=== PATIENT | female | born 1970 | race Caucasian/White ===

== ENCOUNTER 2018-12-01 05:52 | Observation (INO) | payer OTHER ==
[2018-12-01] MEDS: CEFAZOLIN 2 GM/50 ML (PMX) 50 ML IVPB (06:30)
[2018-12-01] MEDS ORDERED: PROPOFOL 20 ML (06:49)
[2018-12-01] MEDS ORDERED: DESFLURANE 15 MIN (07:00)
[2018-12-01] MEDS ORDERED: LIDOCAINE 2% (SDV) 5 ML INJ (07:00)
[2018-12-01] MEDS ORDERED: ROCURONIUM 50 MG INJ (07:02)
[2018-12-01] MEDS ORDERED: morphine 10 MG INJ (07:21)
[2018-12-01] MEDS ORDERED: DEXAMETHASONE 4 MG/ML 5 ML INJ (07:25)
[2018-12-01] MEDS ORDERED: ONDANSETRON 4 MG INJ (07:25)
[2018-12-01] MEDS: BUPIVACAINE 0.25% (MPF) 30 ML INJ (07:52)
[2018-12-01] MEDS: GELATIN SIZE 100 SPONGE (08:03)
[2018-12-01] MEDS: POLYMYXIN/BACITRACIN 1L IRRIG IRR (08:03)
[2018-12-01] MEDS ORDERED: SUGAMMADEX SODIUM 200 MG/2 ML VIAL IV (08:46)
[2018-12-01] MEDS: THROMBIN 5000 UNIT VIAL (09:05)
[2018-12-01] MEDS ORDERED: HYDROmorphONE 1 MG/5 ML IV SYRINGE IV ×3 (09:10→09:30)
[2018-12-01] MEDS ORDERED: FENTAnyl 50 MCG/ML VIAL (09:11)
[2018-12-01] MEDS ORDERED: EPHEDrine SULFATE 50 MG/5 ML SYG IV (09:30)
[2018-12-01] MEDS ORDERED: MEPERIDINE 25 MG INJ IV (09:30)
[2018-12-01] MEDS ORDERED: ONDANSETRON 4 MG INJ IV (09:30)
[2018-12-01] MEDS ORDERED: KETOROLAC 30 MG INJ IV (09:30)
[2018-12-01] MEDS ORDERED: OXYCODONE/ACETAMINOPHEN (5/325) TAB PO ×3 (09:30)
[2018-12-01] MEDS ORDERED: ALBUTEROL 0.083% (NEB) 2.5 MG/3 ML AMP HHN (09:30)
[2018-12-01] MEDS ORDERED: hydrALAzine 20 MG INJ IV (09:30)
[2018-12-01] MEDS ORDERED: DIPHENHYDRAMINE 50 MG INJ IV (09:30)
[2018-12-01] MEDS ORDERED: LABETALOL HCL 20MG INJ IV (09:30)
[2018-12-01] MEDS ORDERED: METOCLOPRAMIDE 10 MG INJ IV (09:30)
[2018-12-01] MEDS ORDERED: FENTAnyl 50 MCG/ML VIAL IV ×2 (09:30)
[2018-12-01] MEDS: FENTAnyl 50 MCG/ML VIAL IV (09:48)
[2018-12-01] MEDS: HYDROmorphONE 1 MG/5 ML IV SYRINGE IV (09:49)
[2018-12-01] MEDS: OXYCODONE/ACETAMINOPHEN (5/325) TAB PO (09:57)
[2018-12-01] MEDS: ONDANSETRON 4 MG INJ IV (09:57)
[2018-12-01] MEDS ORDERED: HYDROCODONE/APAP (5/325) TAB PO (17:00)
[2018-12-01] MEDS ORDERED: ZOLPIDEM 5 MG TAB PO (17:00)
[2018-12-01] MEDS: HYDROCODONE/APAP (5/325) TAB PO (17:36)
[2018-12-01] MEDS: LACTATED RINGER'S 1,000 ML IV* (18:55)
[2018-12-01] MEDS: CEFAZOLIN 1 GM/50 ML (PMX) 50 ML IVPB (18:55)
[2018-12-02] MEDS: HYDROCODONE/APAP (5/325) TAB PO ×2 (01:00→07:25)
[2018-12-02] MEDS: CEFAZOLIN 1 GM/50 ML (PMX) 50 ML IVPB ×2 (01:05→05:22)
== END 2018-12-02 09:52 | disposition home or self-care (01) ==
LOC: REC 05:52 → MS1 17:26
DX: M51.26 Other intervertebral disc displacement, lumbar region (principal); M48.061 Spinal stenosis, lumbar region without neurogenic claudication
CPT/HCPCS: 63030; 72020; 86850; 86900; 86901; 86920; 88304; 88311; 97161; 99217